=== PATIENT | female | born 1975 | race American Indian/Alaskan Native ===

== ENCOUNTER 2021-03-05 14:29 | Day surgery (SDC) | payer OTHER ==
[2021-03-05] MEDS ORDERED: BUPIVACAINE 0.5% VIAL IJ ONE (14:30)
[2021-03-05] MEDS ORDERED: Depo-Medrol 40 MG/ML IM ONE (14:30)
[2021-03-05] MEDS ORDERED: Versed 2 MG/2 ML Injection ONE (15:48)
[2021-03-05] MEDS ORDERED: DIPRIVAN 200 MG/20 ML IV ONE (16:31)
[2021-03-05] MEDS ORDERED: Xylocaine-Mpf 2% 5 Ml Vial ONE (16:35)
[2021-03-05] MEDS ORDERED: Lactated Ringers 1,000 ML IV ONE (16:38)
--- NOTE | 2021-03-05 21:12 | XRAY ---
Indication: Right SI joint injection. Intraoperative fluoroscopy provided for 16 seconds. Single lateral digital spot image submitted for interpretation demonstrates posterior needle tip projecting mid sacrum. Correlate with intraoperative findings/report.
--- NOTE | 2021-03-06 08:49 | XRAY ---
16 seconds fluoroscopy time in surgery for injection of the right SI joint.
== END 2021-03-05 16:55 | disposition home or self-care (01) ==
LOC: SDC-PAIN 14:29
PROVIDERS: ATTEND Psychiatry & Neurology Pain Medicine
DX: M46.1 Sacroiliitis, not elsewhere classified (principal); Z79.899 Other long term (current) drug therapy
CPT/HCPCS: 27096; 72020; 77002; J1030; J2250; J2704; G0260

== ENCOUNTER 2021-12-03 11:33 | Day surgery (SDC) | payer OTHER ==
[2021-12-03] MEDS ORDERED: Lactated Ringers 1,000 ML IV ONE (11:34)
[2021-12-03] MEDS ORDERED: Sodium Chloride 0.9(Preservative Free) 10 ML IJ ONE (11:34)
[2021-12-03] MEDS ORDERED: Depo-Medrol 40 MG/ML IM ONE (11:34)
[2021-12-03] MEDS ORDERED: Versed 2 MG/2 ML Injection ONE (12:49)
[2021-12-03] MEDS ORDERED: DIPRIVAN 200 MG/20 ML IV ONE ×2 (14:06→14:19)
[2021-12-03] MEDS ORDERED: Xylocaine-Mpf 2% 5 Ml Vial ONE (14:10)
--- NOTE | 2021-12-03 16:35 | XRAY ---
Indication: Right L4-S1 transforaminal RAYNA. Intraoperative fluoroscopy provided for 32 seconds. 4 digital spot image submitted for interpretation demonstrates posterior needle tips projecting over the expected right L4 and L5 nerve roots. Small amount of contrast injected for needle tip placement. Correlate with intraoperative findings/report.
--- NOTE | 2021-12-03 17:08 | XRAY ---
32 seconds of fluoroscopy was used in surgery for a right L4-S1 transforaminal RAYNA.
== END 2021-12-03 14:39 | disposition home or self-care (01) ==
LOC: SDC-PAIN 11:33
PROVIDERS: ATTEND Psychiatry & Neurology Pain Medicine
DX: M54.16 Radiculopathy, lumbar region (principal); Z79.899 Other long term (current) drug therapy
CPT/HCPCS: 64483; 64484; 72100; 77003; J1030; J2250; J2704; Q9966

== ENCOUNTER 2022-06-24 09:48 | Day surgery (SDC) | payer OTHER ==
[2022-06-24] MEDS ORDERED: Depo-Medrol 40 MG/ML IM ONE (09:49)
[2022-06-24] MEDS ORDERED: BUPIVACAINE 0.5% VIAL IJ ONE (09:49)
[2022-06-24] MEDS ORDERED: Versed 2 MG/2 ML Injection ONE (11:00)
[2022-06-24] MEDS ORDERED: BENADRYL 50 MG/ML ONE (11:36)
[2022-06-24] MEDS ORDERED: DIPRIVAN 200 MG/20 ML IV ONE (12:05)
[2022-06-24] MEDS ORDERED: Ketamine HCl 50 MG/ML ONE (12:06)
[2022-06-24] MEDS ORDERED: Lactated Ringers 1,000 ML IV ONE (13:03)
--- NOTE | 2022-06-24 19:56 | XRAY ---
Indication: Left knee injection. Intraoperative fluoroscopy provided for 3 seconds. Single digital spot image submitted for interpretation demonstrates needle tip projecting over the left femur interchondral notch. Small amount of contrast injected for needle tip placement. Correlate with intraoperative findings/report.
--- NOTE | 2022-06-24 19:56 | XRAY ---
Indication: Right knee injection. Intraoperative fluoroscopy provided for 8 seconds. Single digital spot image submitted for interpretation demonstrates needle tip projecting over the right femur interchondral notch. Small amount of contrast injected for needle tip placement. Correlate with intraoperative findings/report.
--- NOTE | 2022-06-24 20:02 | XRAY ---
3 seconds of fluoroscopy was used in surgery for a left knee intra-articular injection.
--- NOTE | 2022-06-24 20:02 | XRAY ---
8 seconds of fluoroscopy was used in surgery for a right knee intra-articular injection.
== END 2022-06-24 12:29 | disposition home or self-care (01) ==
LOC: SDC-PAIN 09:48
PROVIDERS: ATTEND Psychiatry & Neurology Pain Medicine
DX: M17.0 Bilateral primary osteoarthritis of knee (principal); Z79.899 Other long term (current) drug therapy
CPT/HCPCS: 20610; 73560; 77002; J1030; J1200; J2250; J2704; Q9966